=== PATIENT | female | born 1960 | race Caucasian/White ===

== ENCOUNTER 2018-12-26 00:27 | Outpatient (CLI) | payer OTHER, SELFPAY ==
[2018-12-26 14:44] LABS: Anion Gap 9.6 mmol/L (3-11); BUN 14 mg/dL (7-18); CO2 26.4 mmol/L (21.0-32.0); CREATININE 0.78 mg/dL (0.55-1.02); Calcium 9.2 mg/dL (8.5-10.1); Chloride 104 mmol/L (98-107); Glucose 95 mg/dL (70-100); Potassium 3.9 mmol/L (3.5-5.1); Sodium 140 mmol/L (136-145)
[2018-12-26] MEDS: Gadoterate meglumine 20 ML VIAL 13 ML IVP (15:02)
--- NOTE | 2018-12-26 15:15 | DI.MRI_ITS ---
SYMPTOMS/DIAGNOSIS: VISUAL HALLUCINATION/SEIZURES, SILVER FLASH X 2 WEEKS LASTING ABOUT 1-2 MINUTES, NO HEADACHE BRAIN MRI: Sagittal T2, axial T2, axial diffusion and T2 axial FLAIR, T1 coronal temporal lobes and T1 axial pre and post and T2 axial HEMO and T1 axial post and T1 coronal post pulse sequences were performed. No signal abnormality is demonstrated in the brain. There is no evidence of a mass or restricted diffusion. The ventricles are intact. There are no regions of contrast enhancement. SUMMARY: Normal brain MRI.
== END 2018-12-26 00:47 ==
PROVIDERS: PCP Internal Medicine; Visit Provider Internal Medicine
DX: R44.1 Visual hallucinations (principal); R41.89 Other symptoms and signs involving cognitive functions and awareness
CPT/HCPCS: 70553; 80048

== ENCOUNTER 2019-03-04 16:07 | Outpatient (REF) | payer OTHER, SELFPAY ==
--- NOTE | 2019-03-04 15:40 | PAPFT_PTH ---
PATIENT: SABRINA DAVENPORT LOC: [facility] U#:[id number] AGE/SX: 58/F ROOM: RE03/04/[address]: Ayanna Barnes : 1960 BED: DIS: 03/04/2019 SPEC #: [id number] RECD: 03/04/19 17:58 STATUS: RUTH RENaz #: [id number] TERRY: 03/04/19 15:[address]: Ayanna Barnes DEPT: PENDING SALE TO [facility] Cytology RECD BY: Nereyda Montgomery ENTERED: 03/04/19 17:58 SP TYPE: PAPFT OTHR DR: Opal Cabezas Tissues: 1 - CX/ENDOCX FOR PAP SMEARS Procedures: PAP THIN PREP/[facility] Screening HPV DNA PROBE Comments: [id number]
== END 2019-03-04 16:27 ==
LOC: LBN 16:07
PROVIDERS: PCP Internal Medicine; Visit Provider Obstetrics & Gynecology Gynecology
DX: Z12.4 Encounter for screening for malignant neoplasm of cervix (principal); Z11.51 Encounter for screening for human papillomavirus (HPV)
CPT/HCPCS: 88142; 87624

== ENCOUNTER 2023-11-07 16:28 | Outpatient (REF) | payer OTHER, SELFPAY ==
--- NOTE | 2023-11-07 15:30 | PAPFT_PTH ---
PATIENT: SABRINA DAVENPORT LOC: [facility] U#:[id number] AGE/SX: 62/F ROOM: RE11/07/[address]: Priyanka Alejo MD : 1960 BED: DIS: 11/07/2023 SPEC #: [id number] RECD: 11/07/23 17:29 STATUS: RUTH OCHOA #: [id number] TERRY: 11/07/23 15:[address]: Priyanka Alejo DEPT: [facility] Cytology RECD BY: Nereyda Montgomery ENTERED: 11/07/23 17:30 SP TYPE: PAPFT OTHR DR: Opal Cabezas Tissues: 1 - CX/ENDOCX FOR PAP SMEARS Procedures: PAP THIN PREP/[facility] Screening HPV DNA PROBE Comments: [id number]
== END 2023-11-07 16:29 | disposition home or self-care (01) ==
LOC: LBN 16:28
PROVIDERS: PCP Internal Medicine; Visit Provider Obstetrics & Gynecology
DX: Z01.419 Encounter for gynecological examination (general) (routine) without abnormal findings (principal); N84.1 Polyp of cervix uteri; N39.3 Stress incontinence (female) (male); D26.0 Other benign neoplasm of cervix uteri
CPT/HCPCS: 88142; 87624